=== PATIENT | female | born 1980 | race Caucasian/White ===

== ENCOUNTER 2018-05-15 23:20 | Emergency (ER) | payer MEDICAID, OTHER ==
[2018-05-15 23:42] VITALS: BP 124/78
[2018-05-16] MEDS ORDERED: HYDROCODONE/ACETAMINOPHEN 5-325 MG TABLET PO ONE (00:34)
[2018-05-16] MEDS ORDERED: PENICILLIN V POTASSIUM 500 MG TABLET PO ONE (00:35)
[2018-05-16] MEDS ORDERED: LIDOCAINE 2% VISCOUS SOLN 20 ML UDCUP PO ONE (00:37)
--- NOTE | 2018-05-16 00:38 | ER Document Report ---
HPI - HPI Time Seen by Provider: 05/16/18 00:34 Pain Level: 5 Notes: Patient is an otherwise healthy 38-year-old female who presents to the emergency department with right lower dental pain for 30. Patient reports this is been going on for approximately 1 day. She states she has been taking ibuprofen 800 mg every 6-8 hours without any relief. She reports that her dentist office is closed until after the holidays. She denies any fever. - CONSTITUTIONAL Constitutional: DENIES: Fever, Chills - EENT EENT: DENIES: Sore Throat, Ear Pain, Eye problems - NEURO Neurology: DENIES: Headache, Weakness, Vision blurred, Dizzinesss / Vertigo - CARDIOVASCULAR Cardiovascular: DENIES: Chest pain - RESPIRATORY Respiratory: DENIES: Trouble Breathing, Coughing - GASTROINTESTINAL Gastrointestinal: DENIES: Abdominal Pain, Black / Bloody Stools - URINARY Urinary: DENIES: Dysuria, Urgency, Frequency - MUSCULOSKELETAL Musculoskeletal: DENIES: Extremity pain Past Medical History - General Information source: Patient - Social History Smoking Status: Current Every Day Smoker Frequency of alcohol use: Rare Drug Abuse: None Family History: Reviewed & Not Pertinent Patient has suicidal ideation: No Patient has homicidal ideation: No - Medical History Medical History: Negative Renal/ Medical History: Denies: Hx Peritoneal Dialysis Surgical Hx: Negative - Immunizations Immunizations up to date: Yes Vertical Provider Document - CONSTITUTIONAL Notes: PHYSICAL EXAMINATION: GENERAL: Well-appearing, well-nourished and in no acute distress. HEAD: Atraumatic, normocephalic. EYES: Pupils equal round extraocular movements intact, conjunctiva are normal. ENT: Nares patent, erythema around tooth #30, no abscess identified. Poor denti tion throughout. NECK: Normal range of motion LUNGS: No respiratory distress Musculoskeletal: Normal range of motion NEUROLOGICAL: Normal speech, normal gait. PSYCH: Normal mood, normal affect. SKIN: Warm, Dry, normal turgor, no rashes or lesions noted. - INFECTION CONTROL TRAVEL OUTSIDE OF THE [place] IN LAST 30 DAYS: No Course - Re-evaluation Re-evalutation: 05/16/18 00:40 Patient's physical and examination are consistent with dental infection. There is no drainable abscess identified. Patient explained repeatedly about the number of times she is taking ibuprofen with no relief. Patient has asked several times for pain medication. I will give patient one dose of hydrocodone while in the emergency department but none will be dispensed. I explained to patient that once the antibiotics take effect that the ibuprofen should suffice for pain control and that we do not prescribe narcotics for dental pain. Patient instructed to follow-up with her dentist. - Vital Signs Vital signs: Temp Pulse Resp BP Pulse Ox 97.8 F 81 16 124/78 100 05/15/18 23:23 1218 23:23 12 23:23 05/15/18 23:23 05/15/18 23:23 Discharge - Discharge Clinical Impression: Dental infection Condition: Stable Disposition: HOME, SELF-CARE Additional Instructions: TOOTHACHE: Your pain is due to dental decay. The tooth must be repaired in order for you to feel better. You will, therefore, be referred to a dentist. We do not have dentists on the staff at [facility]. Severe swelling or drainage around a tooth usually means a dental abscess. This also requires evaluation and treatment by the dentist, but antibiotics may be prescribed while awaiting dental treatment. You should be rechecked immediately if you develop major swelling of the face, increasing pain, a lump in the jaw or gums, headache, difficulty swallowing, or fever. PENICILLIN V K: You have been given a prescription for Penicillin VK. Your physician has determined that this is the best antibiotic for your condition. Pen VK can be taken with meals, however more of the antibiotic gets into the bloodstream if it's taken on an empty stomach. Penicillin usually has no side effects. However, allergy to penicillins is common. If you have had an allergic reaction to any drug of the penicillin family, you should never take any other penicillin. Notify your doctor at once if you develop hives, itching, swelling, faintness, or shortness of breath. FOLLOW-UP CARE: You have been referred for follow-up care to the dentists listed below. Call the dentists office for an appointment as you were instructed or within the next two days. If you experience worsening or a significant change in your symptoms, notify the physician immediately or return to the Emergency Department at any time for re-evaluation. [facility] [address] Follow-up with your dentist as we discussed. You are given one dose of hydrocodone here in the emergency department today. Once the antibiotics take effect the ibuprofen that you have been taking should be effective. Take 600 mg every 6 hours for the next several days. Prescriptions: Penicillin V Potassium [Penicillin Vk 500 mg Tablet] 500 mg PO BID #20 tablet Referrals: LOCALMD,NO [Primary Care Provider] - Follow up as needed
== END 2018-05-16 00:50 | disposition home or self-care (01) ==
LOC: ER 23:20
DX: K04.7 Periapical abscess without sinus (principal); F17.200 Nicotine dependence, unspecified, uncomplicated
CPT/HCPCS: 99283; J3490

== ENCOUNTER 2018-05-16 09:47 | Emergency (ER) | payer SELFPAY ==
[2018-05-16 09:59] VITALS: BP 131/93
--- NOTE | 2018-05-16 10:20 | ER Document Report ---
ED Oral Problem - General Chief Complaint: Toothache Stated Complaint: TOOTH PAIN Time Seen by Provider: 05/16/18 09:56 Mode of Arrival: Ambulatory Information source: Patient Notes: 8-year-old female presented to ED for complaint of tooth ache. She states she was seen yesterday given antibiotic Viscous Lidocaine and told to use Tylenol or Motrin for her dental pain. She states she used the penicillin the viscous lidocaine and is been using Tylenol and Motrin and could not sleep because her pain was so bad. She states she needs some narcotics so that she can sleep through the night until her dentist is open after the holidays. She denies any fevers. She does states she is smoking every day. TRAVEL OUTSIDE OF THE [place] IN LAST 30 DAYS: No - HPI Patient complains to provider of: Toothache Onset: Other - 2 days Onset: Gradual Quality of pain: Sharp, Throbbing Severity: Severe Pain Level: 5 Associated symptoms: Toothache Worsened by: Other Relieved by: Nothing - Smoking Similar symptoms previously: Yes Recently seen / treated by doctor/dentist: Yes - Related Data Allergies/Adverse Reactions: No Known Allergies Allergy (Verified 05/16/18 09:48) Past Medical History - General Information source: Patient - Social History Smoking Status: Current Every Day Smoker Cigarette use (# per day): Yes - Pack per day Smoking Education Provided: Yes - 4 minutes Frequency of alcohol use: Rare Drug Abuse: None Family History: Reviewed & Not Pertinent Patient has suicidal ideation: No Patient has homicidal ideation: No - Past Medical History Cardiac Medical History: Reports: None Pulmonary Medical History: Reports: None EENT Medical History: Reports: None Neurological Medical History: Reports: None Endocrine Medical History: Reports: None Renal/ Medical History: Reports: None Malignancy Medical History: Reports: None GI Medical History: Reports: None Musculoskeletal Medical History: Reports None Skin Medical History: Reports None Psychiatric Medical History: Reports: None Traumatic Medical History: Reports: None Infectious Medical History: Reports: None Surgical Hx: Negative Past Surgical History: Reports: None - Immunizations Immunizations up to date: Yes Hx Diphtheria, Pertussis, Tetanus Vaccination: Yes Review of Systems - Review of Systems Constitutional: No symptoms reported EENT: Dental problem Cardiovascular: No symptoms reported Respiratory: No symptoms reported Gastrointestinal: No symptoms reported Genitourinary: No symptoms reported Female Genitourinary: No symptoms reported Musculoskeletal: No symptoms reported Skin: No symptoms reported Hematologic/Lymphatic: No symptoms reported Neurological/Psychological: No symptoms reported -: Yes All other systems reviewed and negative Physical Exam - Vital signs Vitals: Temp Pulse Resp BP Pulse Ox 97.7 F 78 20 131/93 H 100 05/16/18 09:58 05/16/18 09:58 05/16/18 09:58 05/16/18 09:58 05/16/18 09:58 Interpretation: Normal - General General appearance: Appears well, Alert - HEENT Head: Normocephalic, Atraumatic Eyes: Normal Pupils: PERRL Teeth diagram: 1 - Cracked tooth with a edema surrounding the tooth and a cavity in the tooth very poor dentition throughout Pharynx: Post nasal drainage Neck: Normal - Respiratory Respiratory status: No respiratory distress Chest status: Nontender Breath sounds: Normal Chest palpation: Normal - Cardiovascular Rhythm: Regular Heart sounds: Normal auscultation Murmur: No - Abdominal Inspection: Normal Distension: No distension Bowel sounds: Normal Tenderness: Nontender Organomegaly: No organomegaly - Back Back: Normal, Nontender - Extremities General upper extremity: Normal inspection, Nontender, Normal color, Normal ROM, Normal temperature General lower extremity: Normal inspection, Nontender, Normal color, Normal ROM, Normal temperature, Normal weight bearing. No: Hussain's sign - Neurological Neuro grossly intact: Yes Cognition: Normal Orientation: AAOx4 Kristie Coma Scale Eye Opening: Spontaneous [place] Coma Scale Verbal: Oriented Kristie Coma Scale Motor: Obeys Commands Kristie Coma Scale Total: 15 Speech: Normal Motor strength normal: LUE, RUE, LLE, RLE Sensory: Normal - Psychological Associated symptoms: Normal affect, Normal mood - Skin Skin Temperature: Warm Skin Moisture: Dry Skin Color: Normal Course - Re-evaluation Re-evalutation: 05/16/18 11:27 Patient was very angry when I told her she could take Tylenol Motrin and viscous lidocaine for her discomfort she stated that she needed some narcotic because she could not sleep this is her second time coming in for toothache and she needs something stronger for her pain. I offered her a Toradol shot which she refused I offered her a dental block which she refused and then she demanded that she wanted some Tylenol threes. I offered her a prescription for 3 Tylenol 3's to last her until she after the and then she needed to go to a dentist. She then demanded that she wanted a Tylenol 3 right now and I explained to her that she could go and fill her prescription at the drugstore. She became very angry and rude and I discharged her home. - Vital Signs Vital signs: Temp Pulse Resp BP Pulse Ox 97.7 F 78 20 131/93 H 100 05/16/18 09:58 05/16/18 09:58 05/16/18 09:58 05/16/18 09:58 05/16/18 09:58 Discharge - Discharge Clinical Impression: Pain due to dental caries Condition: Stable Disposition: HOME, SELF-CARE Additional Instructions: TOOTHACHE: Your pain is due to dental decay. The tooth must be repaired in order for you to feel better. You will, therefore, be referred to a dentist. We do not have dentists on the staff at [facility]. Severe swelling or drainage around a tooth usually means a dental abscess. This also requires evaluation and treatment by the dentist, but antibiotics may be prescribed while awaiting dental treatment. You should be rechecked immediately if you develop major swelling of the face, increasing pain, a lump in the jaw or gums, headache, difficulty swallowing, or fever. ORAL NARCOTIC MEDICATION: You have been given a prescription for 3 Tylenol threes please use ibuprofen for the rest of your pain for pain control. This medication is a narcotic. It's best taken with food, as nausea can result if taken on an empty stomach. Don't operate machinery or drive within six hours of taking this medication. Do not combine this medicine with alcohol, or with any medication which can cause sedation (such as cold tablets or sleeping pills) unless you get permission from the physician. Narcotics tend to cause constipation. If possible, drink plenty of fluids and eat a diet high in fiber and fruits. Please be aware that prescription narcotics also have the potential for abuse. People become addicted to these medications because of the general sense of wellbeing that they induce. This feeling along with a significant reduction in tension, anxiety, and aggression provides a stimulating seductive quality to these drugs. Once your pain is under control, we encourage you to discard your unused narcotics. PENICILLIN V K: Please completes her prescription for penicillin You have been given a prescription for Penicillin VK. Your physician has determined that this is the best antibiotic for your condition. Pen VK can be taken with meals, however more of the antibiotic gets into the bloodstream if it's taken on an empty stomach. Penicillin usually has no side effects. However, allergy to penicillins is common. If you have had an allergic reaction to any drug of the penicillin family, you should never take any other penicillin. Notify your doctor at once if you develop hives, itching, swelling, faintness, or shortness of breath. FOLLOW-UP CARE: You have been referred for follow-up care to the dentists listed below. Call the dentists office for an appointment as you were instructed or within the next two days. If you experience worsening or a significant change in your symptoms, notify the physician immediately or return to the Emergency Department at any time for re-evaluation. [facility] [address] [place], [place] [facility] [address] [place] [address] [facility] [address] [facility] [address] [facility]) [facility] [address] [email or web address] [address] [place] [address] Wednesday- 8:00am to 5:00 pm Will see [facility] from other [facility]. Charges based on income and family size and accepts Medicare, Medicaid, and Insurances Will pull molars [facility] [id number] Hours of Operation 8:00 am - 4:30 pm weekdays The following dental offices accept Medicaid: [facility] [address]. M[address] Dr. Petersen Dr. Ibanez Dr. Ibarra Yasmani Anaya, [place], and [place] oral [facility] Dr. Moscoso ([place]) Dr. Spann ([place]) [facility] Drs. Ríos ([place]) Dr. Perales ([place]) [facility] Dr. Escobedo ([place]) Drs. Ladd and ([place]) Medicaid Care Line Prescriptions: Acetaminophen with Codeine [Tylenol #3 Tablet] 1 each PO Q6HP PRN #3 tablet PRN Reason: Forms: Elevated Blood Pressure, Smoking Cessation Education
== END 2018-05-16 10:29 | disposition home or self-care (01) ==
LOC: ER 09:47
DX: K02.9 Dental caries, unspecified (principal); K03.81 Cracked tooth; K08.89 Other specified disorders of teeth and supporting structures; F17.210 Nicotine dependence, cigarettes, uncomplicated
CPT/HCPCS: 99282; 99406